=== PATIENT | female | born 1985 ===

== ENCOUNTER 2017-10-01 16:10 | Emergency (ER) | payer OTHER ==
[~2017-10-01] VITALS: Ht 167.6 cm; Wt 62.6 kg
[~2017-10-01 16:10] MED LIST: ORPH100T PO; PERCOCET 5/3251 TAB PO
== END 2017-10-01 22:29 | disposition home or self-care (01) ==
LOC: ER 16:10
DX: O20.0 Threatened abortion (principal); Z34.01 Encounter for supervision of normal first pregnancy, first trimester